=== PATIENT | male | born 1960 | race African-American/Black ===

== ENCOUNTER 2022-10-28 06:56 | Day surgery (SDC) | payer OTHER ==
[~2022-10-28] VITALS: Ht 193.3 cm; Wt 97.3 kg
[2022-10-28] VITALS (9 sets, daily range): BP systolic 134–161; BP diastolic 78–107; PULSE 54–69; TEMP 97.7
[~2022-10-28 06:56] MED LIST: AMLOPIDINE PO; ASPIR-LOW81 MG PO; COREG6.25 MG PO; COZAAR50 MG PO; HCTZ 25MG25 MG PO; LIPITOR40 MG PO; LISINOPRIL20 MG PO; NEXIUM40 MG PO; TRICOR145 MG PO
[2022-10-28 08:03] LABS: HEMATOCRIT 38.7 % (42.0-52.0); HEMOGLOBIN 13.8 g/dl (13.5-18.0); MEAN CELL VOLUME 93 fl (80.0-100.0); MEAN CORPUSCULAR HEMOGLOBIN 33 pg (27-31); MEAN CORPUSCULAR HGB CONC 36 g/dl (33.0-37.0); MEAN PLATELET VOLUME 12.7 fl (7.4-10.4); PLATELET COUNT 140 K/mm3 (130-400); RED BLOOD COUNT 4.15 M/mm3 (4.20-5.60)
[2022-10-28 08:19] LABS: CALCIUM 9.6 mg/dL (8.4-10.2); CREATININE, serum 0.98 mg/dL (0.72-1.25); POTASSIUM 3.3 mmol/L (3.5-4.5)
--- NOTE | 2022-10-28 08:21 | NUR ---
PRE PROCEDURE ASSESSMENT DONE IN [facility] BY THIS RN. SEE MERGE FOR ALL BASELINE/INTRAPROCEDURE VITALS INCLUDING ETC02 AND MEDICATION ADMINISTRATION TIMES/DOSAGES,INTRA/POST PROCEDURE SEDATION ASSESSMENTS.
[2022-10-28 08:28] LABS: PROTHROMBIN TIME 11.5 SECONDS (9.7-12.8)
[2022-10-28 08:31] LABS: PARTIAL THROMBOPLASTIN TIME 27.6 SECONDS (26.0-37.0)
[2022-10-28] MEDS ORDERED: ASPIRIN E.C. 8181 MG PO (08:39)
[2022-10-28] MEDS ORDERED: MICARDIS80 MG PO (08:39)
[2022-10-28] MEDS ORDERED: HCTZ 25MG TAB25 MG PO (08:40)
[2022-10-28] MEDS ORDERED: LIPITOR 40MG TA40 MG PO (08:41)
[2022-10-28] MEDS ORDERED: COREG 25MG25 MG/TAB PO (08:42)
--- NOTE | 2022-10-28 08:45 | NUR ---
PATIENT TAKEN TO [facility], ONLY 20MEQ POTASSIUM PULLED FOR POTASSIUM LEVEL 3.3, NOTIFIED L[facility] 40 MEQ PO IS ORDERED FOR PATIENT WILL GIVEN IN [facility]
--- NOTE | 2022-10-28 09:40 | NUR ---
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 Has no c/o. radial band on with 14 cc of air, reviewed post inst. with pt. ordered lunch, sips on water, call light in reach
--- NOTE | 2022-10-28 11:00 | NUR ---
pt sits up in bed, eats lunch, has no c/o or requests
--- NOTE | 2022-10-28 11:45 | NUR ---
releasing air from TR band, 2cc intervals over 15 min with no bleeding or swelling. bandaid over site, wrapped with coban for support. no oozing or swelling
--- NOTE | 2022-10-28 12:00 | NUR ---
reviewed discharg inst. with pt on care of site, activity and precautions. also reviewed moderate sedation precautions with pt, no med changes and followup appt given. pt up in room, IV d'cd intact. dressed, gait steady. pt discharged at 1235 via w/c to car with
== END 2022-10-28 12:40 | disposition home or self-care (01) ==
LOC: COL.CAR 06:56
PROVIDERS: Internal Medicine Cardiovascular Disease
DX: I42.8 Other cardiomyopathies (principal)
CPT/HCPCS: J1644; J2250; J3010; Q9967